=== PATIENT | female | born 1980 | race Two or more races ===

== ENCOUNTER 2022-01-10 00:03 | Emergency (ER) | payer BC ==
[~2022-01-10] VITALS: Ht 165.1 cm; Wt 100.8 kg
[2022-01-10 01:43] LABS: Basophils # (auto) 0 10 ^3/uL (0-0.2); Basophils % (auto) 0.2 % (0.0-2.0); Eosinophils # (auto) 0.1 10 ^3/uL (0-0.8); Eosinophils % (auto) 1.3 % (0.0-7.0); Hematocrit 36.3 % (36.0-46.0); Hemoglobin 12.1 g/dL (12.2-16.2); Lymphocytes # (auto) 2.1 10 ^3/uL (0.4-5.4); Lymphocytes % (auto) 23.1 % (10.0-50.0); Mean Corpuscular Hemoglobin 30.3 pg (28.0-32.0); Mean Corpuscular Hgb Conc. 33.3 g/dL (32.0-36.0); Monocytes # (auto) 0.8 10 ^3/uL (0-1.3); Monocytes % (auto) 8.6 % (0.0-12.0); Neutrophils % (auto) 66.8 % (37.0-80.0); Red Blood Cells 3.99 10^6/uL (4.0-5.20); Red Cell Distribution Width 13.2 % (11.8-14.3)
[2022-01-10 02:05] LABS: BUN/Creatinine Ratio 29.2; Calcium 8.5 mg/dL (8.5-10.1)
[2022-01-10 02:14] LABS: Bilirubin, Total 0.3 mg/dL (0.2-1.0)
[2022-01-10] MEDS ORDERED: IBU600T PO (08:56)
[2022-01-10 12:13] VITALS: BP 139/86
== END 2022-01-10 12:16 | disposition home or self-care (01) ==
LOC: ER 00:07
DX: R07.89 Other chest pain (principal); R09.1 Pleurisy
CPT/HCPCS: 36415; 71046; 80053; 83880; 84484; 85025; 93005